=== PATIENT | female | born 1980 | race Two or more races ===

== ENCOUNTER 2024-04-25 15:46 | Outpatient (RCR) | payer OTHER, MEDICAID, SELFPAY | END 2024-05-24 23:59 | disposition home or self-care (01) | LOC: SCTC 15:46 | PROVIDERS: PCP Physician Assistant; Referring Provider Family Medicine; Visit Provider Nurse Practitioner Family | DX: C64.2 Malignant neoplasm of left kidney, except renal pelvis (principal); Z90.5 Acquired absence of kidney; K76.0 Fatty (change of) liver, not elsewhere classified; N13.30 Unspecified hydronephrosis; K59.00 Constipation, unspecified; Z90.721 Acquired absence of ovaries, unilateral; R91.1 Solitary pulmonary nodule; F10.11 Alcohol abuse, in remission | CPT/HCPCS: 99212; G0463 ==

== ENCOUNTER 2024-06-07 15:36 | Outpatient (RCR) | payer OTHER, MEDICAID, SELFPAY | END 2024-06-24 23:59 | disposition home or self-care (01) | LOC: SCTC 15:36 | PROVIDERS: PCP Physician Assistant; Referring Provider Physician Assistant; Visit Provider Nurse Practitioner Family | DX: C64.2 Malignant neoplasm of left kidney, except renal pelvis (principal); Z90.5 Acquired absence of kidney; D27.1 Benign neoplasm of left ovary; Z90.721 Acquired absence of ovaries, unilateral; R91.1 Solitary pulmonary nodule; K59.00 Constipation, unspecified; F10.11 Alcohol abuse, in remission; K76.0 Fatty (change of) liver, not elsewhere classified | CPT/HCPCS: 99212; G0463 ==

== ENCOUNTER → 2024-07-04 | Outpatient (CLI) | payer OTHER, MEDICAID, SELFPAY ==
[2024-07-04 18:02] LABS: Basophils # (Auto) 0.1 Thou/mm3 (0.0-0.2); Basophils % (Auto) 1 % (0-2.5); Eosinophils # (Auto) 0.2 Thou/mm3 (0.0-0.5); Eosinophils % (Auto) 2 % (0-10); Hematocrit 36.5 % (36.0-46.0); Hemoglobin 12.4 g/dL (12.0-16.0); Immature Granulocytes % (Auto) 0 % (0-0); Immature Granulocytes Auto 0.02 Thou/mm3 (0.00-0.00); Lymphocytes # (Auto) 2.7 Thou/mm3 (1.0-4.8); Lymphocytes % (Auto) 31 % (10-50); Mean Corpuscular Hemoglobin 29.6 pg (25.0-35.0); Mean Corpuscular Volume 87 fL (80-100); Monocytes # (Auto) 0.8 Thou/mm3 (0.0-0.8); Monocytes % (Auto) 9 % (0-12); Neutrophils % (Auto) 57 % (37-80); Nucleated Red Blood Cell % 0 /100 WBC (0); Platelet Count 231 Thou/mm3 (140-440); RDW Standard Deviation 40.5 fL (36.4-46.3); Red Blood Count 4.19 Miln/mm3 (4.00-5.20); White Blood Count 8.7 Thou/mm3 (3.6-11.0)
[2024-07-04 18:08] LABS: Partial Thromboplastin Time 26.6 Seconds (22.0-36.0); Prothrombin Time 10.6 Seconds (9.0-12.2)
[2024-07-04 18:21] LABS: Alanine Aminotransferase 28 U/L (10-49); Albumin, Serum 4.2 gm/dL (3.5-5.0); Albumin/Globulin Ratio 1.7 (1.2-2.2); Alkaline Phosphatase 94 U/L (46-116); Anion Gap 7 (7-16); Aspartate Amino Transferase 24 U/L (0-34); BUN/Creatinine Ratio 20 Ratio (12-20); Bilirubin,Total 0.6 mg/dL (0.3-1.2); Blood Urea Nitrogen 12 mg/dL (9-23); Calcium 9.1 mg/dL (8.3-10.6); Calcium (Corrected) 9.1 mg/dL (8.5-10.1); Carbon Dioxide 25.9 mMol/L (20.0-31.0); Chloride 105 mMol/L (98-107); Creatinine (Component) 0.6 mg/dL (0.6-1.3); Globulin 2.5 gm/dL (2.3-3.5); Glucose 89 mg/dL (74-106); Osmolality,Calculated 274 (275-295); Potassium 4.1 mMol/L (3.4-5.1); Sodium 138 mMol/L (136-145); Total Protein 6.7 gm/dL (5.7-8.2); eGFR > 60 See Note
== END | disposition home or self-care (01) ==
PROVIDERS: PCP Family Medicine; Referring Provider Internal Medicine Gastroenterology; Visit Provider Internal Medicine Gastroenterology
DX: R10.9 Unspecified abdominal pain (principal)
CPT/HCPCS: 36415; 80053; 85025; 85610; 85730

== ENCOUNTER 2024-12-01 14:41 | Outpatient (RCR) | payer OTHER, MEDICAID, SELFPAY ==
--- NOTE | 2024-12-12 01:50 | CTCFLWUP_ITS ---
Patient: PARI VARGAS : 1980 Page 8 of 9 FOLLOW UP NOTE DATE OF SERVICE: 12/01/2024 NAME: PARI VARGAS ACCOUNT: [id number] : 1980 AGE: 44 INTERVAL HISTORY: Patient in for follow-up. CT of abdomen and pelvis done at [facility] on 04/18/2024 showed no intra-abdominal or intrapelvic pathology but did show mild constipation. 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 Patient reports good appetite and energy levels. Patient denies any other concerns or complaints. Patient denies weight loss abdominal pain chest pain cough. 11/17/2024 CT scan showed no significant abnormality. 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 S/p left kidney biopsy (04/21/2022) S/p left partial nephrectomy at [facility] on 07/21/2022 INTERVAL HISTORY: Follow-up for kidney cancer and US results . Ultrasound of abdomen was ordered during last visit due to elevated LFTs. Ultrasound of abdomen showed fatty liver and mild bilateral hydronephrosis. Last time patient drank alcohol was over 5 years ago. Patient following up with nephrology, last follow-up was on 04/19/2024. Patient reports she went to the emergency room at [facility] on 04/17/2024 for abdominal pain, was told she had constipation, had imaging done, unsure what imaging was done, we do not have records. Patient denies abdominal pain at this time. Denies cough weight loss. HISTORY: Pari Vragas is a 44-year-old ENG speaking female has the following oncology history. 03/30/2021: Patient had transabdominal and pelvic ultrasound done to evaluate the cause for 3 days of lower pelvic pain. 04/16/2021: CT scan of the abdomen and pelvis with IV contrast to evaluate the cause for worsening lower abdominal pain? 04/16/2021: Ms. Vargas had exploratory laparotomy, left ovarian cystectomy and left salpingectomy. 08/26/2021: Ms. Vargas had abdominal ultrasound to evaluate the cause for abdominal pain of 2 hours duration. 10/03/2021: Ms. Vargas had laparoscopic cholecystectomy for symptomatic cholelithiasis. 04/20/2022: Ms. Vargas had CT scan of the abdomen and pelvis with IV contrast to evaluate the cause for abdominal pain with vaginal bleeding of 2 days duration. 04/21/2022: Ms. Vargas had CT-guided biopsy of the left renal tumor mass. 04/23/2022: MRI of the brain with IV contrast was obtained to evaluate the cause for headaches and dizziness of 4 days duration 04/24/2022: CT scan of the chest with IV contrast was done to rule out lung mets? 07/21/2022: Ms. Vargas had left partial nephrectomy at [facility]. 12/11/2022: Ms. Vargas had CT scan of the abdomen and pelvis with IV contrast? 02/16/2023: Ms. Vargas had CT scan of the abdomen and pelvis without contrast for bilateral flank pain in the abdomen. 04/10/2023: CT scan of the chest abdomen and pelvis with IV contrast 06/16/2023: MRI brain with and without contrast 10/16/2023: CT of chest with contrast 03/11/2024: AST 45, a LT 61, alk phos 118, T. bili 1.13 03/11/2024: 7 mm calcified pulmonary nodule is again seen in the right upper lobe, likely benign, no new focal pulmonary abnormality is noted. No evidence of residual or recurrent left renal tumor. 03/24/2024 follow-up visit: CT done on 03/11/2024 showed a 7 mm pulmonary nodule seen again in the right upper lobe, likely benign. Labs done on 03/11/2024 showed AST 45, ALT 61, a alk phos 118, total bilirubin 1.13. Patient has a history of alcohol abuse last time she drank was 5 years ago. 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 S/p left kidney biopsy (04/21/2022) S/p left partial nephrectomy at [facility] on 07/21/2022 Serous cystadenoma of the left ovary. Status post left oophorectomy (04/16/2021) DATE OF DIAGNOSIS: 04/21/2022 STAGE/TNM: Stage I renal cell carcinoma ([id number]), 26mm clear-cell, Fhurman type I of left kidney TREATMENT HISTORY: Care?Plan Start?Date Cycle Day Intent HISTORY OF PRESENT ILLNESS: OTHER MEDICAL HISTORY/CONDITIONS: Anemia Covid - 02/2021 Left renal cell cancer - 04/21/22 x 3 Left ovairan cyst removal - 03/2021 Cholecystectomy - 10/13 Cystoscopy - 10/13 - Dr. Ny FAMILY HISTORY: Cancer History:?Maternal grandmother- breast - dx age 30's Patient?denies?family?cancer?history. 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 Tobacco?Pack?per?Day:?1 Tobacco?Use?Years:?10 Tobacco?Use:?Quit?3?yrs?ago ETOH Use:?Quit 3 yrs ago - drank beer/hard liquor daily for 10 yrs Drug?Note:?Quit 3 yrs ago - Smoke meth and marijuana daily for 10 yrs, stopped about 2019 Social History Note:?Lives with and 2 children CONSTRUCTION PROJECT ADMINISTRATOR HISTORY: Menarche?-?Age:?16 Date?LMP:?04/09/2022 Hormone?Use:?Denies :?4 Live?Births:?3 Age?1st?:?19 Gynecological?Note:?1? MEDICATIONS: 1. atorvastatin - 10 mg 1 tab Daily 2. Wegovy - 0.5 mg/0.5 mL Weekly Medications Last Reconciled by [place] MD on 12/01/2024 ALLERGIES: No Known Allergies; No Known Drug Allergies REVIEW OF SYSTEMS: A complete 14-point review of systems was performed and is negative except as noted in interval history. PHYSICAL EXAMINATION: VITAL SIGNS: Temperature?98.9, B/P?121/81, Oxygen?Saturation?98% Weight?168?lbs PAIN: None ECOG Performance Status: 0 - Asymptomatic and fully active GENERAL APPEARANCE: Appears well, in no apparent distress, appropriately interactive. HEENT: Normocephalic, normal conjunctiva, normal hearing, lips without lesions, neck normal range of motion. CARDIOVASCULAR: Normal heart sounds. PULMONARY: Normal respiratory effort, no respiratory distress or use of accessory muscles, speaking in full sentences, no tachypnea. EXTREMITIES: No cyanosis. SKIN: Normal skin appearance. NEUROLOGIC: Alert and ORIENTED x4. PSHYCHIATRIC: Appropriate affect, mood normal, behavior normal, intact thought and speech. LABORATORY DATA: I have personally reviewed and interpreted each of the patient?s relevant lab tests, abnormal findings are below: Date 09/01/22 07/04/24 ??WHITE?BLOOD?COUNT?(Thou/mm3) 5.6 8.7 ??RED?BLOOD?COUNT?(Miln/mm3) 4.05 4.19 ??HEMOGLOBIN?(gm/dl) 11.2?L 12.4 ??HEMATOCRIT?(%) 34.2?L 36.5 ??PLATELET?COUNT?(Thou/mm3) 233 231 ??NEUTROPHILS?%,?AUTO?(%) 56 57 ??LYMPH?%,?AUTO?(%) 31 31 ??NEUTROPHILS,?AUTO?(Thou/mm3) 3.1 5.0 ??GLUCOSE,RANDOM?(mg/dL) ? 89 ??BLOOD?UREA?NITROGEN?(mg/dL) ? 12 ??CREATININE?(mg/dL) ? 0.60 ??SODIUM?(mmol/L) ? 138 ??POTASSIUM?(mmol/L) ? 4.1 ??CHLORIDE?(mmol/L) ? 105 ??CrCl?(CandG)?(ml/min) ? 124.02 ??AST/SGOT?(Unit/L) ? 24 ??ALT/SGPT?(Unit/L) ? 28 ??ALKALINE?PHOSPHATASE?(Unit/L) ? 94 ??BILIRUBIN,?TOTAL?(mg/dL) ? 0.6 ??PROTEIN?TOTAL?(gm/dl) ? 6.7 ??ALBUMIN,?SERUM?(gm/dl) ? 4.2 ??GLOBULIN?(gm/dl) ? 2.5 ??ALBUMIN/GLOBULIN?RATIO ? 1.7 ??CALCIUM,?SERUM?(mg/dL) ? 9.1 ??CALCIUM?SERUM?(CORRECTED)?(mg/dL) ? 9.1 ??RETICULOCYTE?ABSOLUTE?AUTO?(Biln/L) 53.1 ? ASSESSMENT/PLAN: #1. 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 S/p left kidney biopsy (04/21/2022) S/p left partial nephrectomy at [facility] on 07/21/2022 Serous cystadenoma of the left ovary. Status post left oophorectomy (04/16/2021) 7 mm pulmonary nodule seen again in the right upper lobe, likely benign, no evidence of residual recurrent left renal tumor, 03/11/2024 F/U with nephorology, next follow-up 06/17/2024, with [facility]. CT of abdomen and pelvis done at [facility] on 04/18/2024 showed no intra- abdominal or intrapelvic pathology, it did show mild constipation Patient denies abdominal pain at this moment. She reports chronic constipation. Referral to GI for possible colonoscopy. CT scan on 11/17/2024 is negative and do not show any concern for cancer #2. Elevated LFTs History of alcohol abuse, last time she drank was 5 years ago Fatty liver, ultrasound, 04/12/2024. Continue following up with PCP for management. LFTs are mildly elevated ..advised to avoid alcohol and Tylenol Continue following up with PCP for chronic conditions. CBC CMP ORDERS: Order # Description RETURN TO CLINIC: I reviewed the diagnosis, prognosis, and recommended treatment/procedure options with the patient (and/or their legal community relations representative), including the potential benefits, risks, side effects and alternative therapies. We also discussed the option of no treatment and the possibility of clinical trial participation, if applicable. All questions were addressed, and they demonstrated understanding. They provided informed consent to proceed with the proposed plan of care. BILLING AND COMPLIANCE: I reviewed external records from providers outside my specialty as summarized above. I spent a total of 50 minutes on this patient?s care on the day of their visit excluding time spent related to any billed procedures. This time includes time spent with the patient as well as time spent documenting in the medical record, reviewing patients records and tests, obtaining history, placing orders, communicating with other healthcare professionals, counseling the patient, family or caregiver, and/or care coordination for the diagnoses above. Electronically Signed by: {Object.Sanct_ID*[email or web address]@M}, {Object.Sanct_ID*PnP.Suffix@U} D: {Object.Sanct_Date} T: {Object.Sanct_Time} CC: Hanna?Tonya,? PCP: Julia Oro Referring: Julia Oro This document was completed utilizing speech recognition software. Grammatical errors, random word insertions, pronoun errors, and incomplete sentences are an occasional consequence of this system due to software limitations, ambient noise, and hardware issues. Any formal questions or concerns about the content, text or information contained within the body of this dictation should be directly addressed to the provider for clarification.
== END 2024-12-22 23:59 | disposition home or self-care (01) ==
LOC: SCTC 14:41
PROVIDERS: PCP Physician Assistant; Referring Provider Family Medicine; Visit Provider Internal Medicine Hematology & Oncology
DX: C64.2 Malignant neoplasm of left kidney, except renal pelvis (principal); Z90.5 Acquired absence of kidney; D27.1 Benign neoplasm of left ovary; Z90.721 Acquired absence of ovaries, unilateral; R91.1 Solitary pulmonary nodule; K59.00 Constipation, unspecified; K70.0 Alcoholic fatty liver
CPT/HCPCS: 99212; G0463

== ENCOUNTER → 2025-01-05 | Outpatient (CLI) | payer OTHER, MEDICAID, SELFPAY ==
--- NOTE | 2025-01-05 08:45 | XR_ITS ---
Examination: Diagnostic digital mammography, bilateral Computer aided detection 3-D breast Tomosynthesis, bilateral Date and time of exam: January 05, 2025 0758 hours INDICATIONS: Mammogram December 09, 2023 8 mm nodule nipple level left breast posterior depth Technique: Nonmagnified MLO, CC views of the breasts to been obtained, reconstructed from 3-D Tomosynthesis images. R2 computer aided detection program utilized for evaluation of suspicious masses and/or abnormal calcifications. 3-D Tomosynthesis images obtained. Findings: Breast are heterogeneously dense, which may obscure small masses Nodular asymmetry remains stable in size posterior depth CC view slightly outer left breast, nipple level left breast on the MLO view Impression: BI-RADS Category 0: Incomplete: Need additional imaging evaluation Recommend repeat left breast sonography to assess 9 mm nodule left breast.
== END | disposition home or self-care (01) ==
LOC: CDIM 07:41
PROVIDERS: Referring Provider Physician Assistant; Visit Provider Physician Assistant
DX: N63.20 Unspecified lump in the left breast, unspecified quadrant (principal)
CPT/HCPCS: 77062; 77066; G0279

== ENCOUNTER 2025-02-16 17:00 | Outpatient (RCR) | payer OTHER, MEDICAID, SELFPAY ==
--- NOTE | 2025-02-09 15:08 | PTNOTE_ITS ---
PT OP Initial Eval Patient Information Outpatient Physical Therapy Treatment Date: 02/09/25 Visit Reasons: Cervicaliga Medical Diagnosis: M54.2 Treatment Dx #1: neck pain Treatment Dx #2: LBP Date of Onset: 02/09/25 Smoking Status Smoking Status: Former smoker Initial Assessment Subjective: Pt is 45 yr old female who reports neck pain x9 months and she did therapy at [facility] in [place] with good results until an insurance change. Increased pain with turning head fast, doing HH chores and she feels mm tightness in the back of the neck and top of shoulders. She c/o LBP that hurts with bending and prolonged sitting. PMH: high cholesterol, Kidney cancer 2022, gallbladder removal 2022 Imaging: with provider Pt goal: to get rid of the pain Objective: C/S AROM: ? Ext 50% with pain at end-range ? Flexion full with slight onset of ssx ? L rotation: 75% R rotation: 75% ? C/S compression: no change ? Distraction: relief ? TTP: moderate of lower C/S paraspinals around C5-7 and UT?s ? B shoulder AROM: full FF ? Molina's reflex: negative ? flexion rotation test: negative for C1-2 limitations Spurlings: negative Assessment: Pt presents with pain and TTP of UT's and CTJ consistent with postural syndrome and possible disc irritation. Pt requires skilled therapy to meet goals and has fair rehab potential. Eval followed by HEP printout. Short Term and Intermediate Goals 1. Ind with HEP 2. Decreased TTP of UT's and CTJ from mod to min 3. Pt will turn head L to R x5 with <=4/10 pain Treatment Plan 1. Manual therapy ? 2. Therex ? 3. Modalities as indicated, mechanical traction, estim, moist heat, ice Frequency and Duration: 1-2x a week for 16 sessions plus the evaluation Certification Dates: 02/09/25 to 05/09/25 Procedure Charges OP PT Eval Mod Complex 30 minutes: Yes
--- NOTE | 2025-02-16 17:05 | PT.ODAYNRPT ---
PT Outpatient Daily Note OP Daily Note Outpatient Physical Therapy Treatment Date: 02/16/25 Visit Reasons: Cervicaliga Subjective: Pt denies cervical pain today. Explains she experienced a sharp pain earlier today that subsided with rest. Objective: See F/S fpr therex performed Assessment: Demo'd good mechanics w/ chin tuck and cervical stretches. Good tolerance and appropriate fatigue with therex, no c/o and states she enjoyed the exercises. Advised to continue with cervical stretches at home. Plan: Continue with POC Length of Time (minutes) of Treatment: 30 Minutes Procedure Charges Therapeutic Exercise 30 minutes: Yes
== END 2025-02-21 23:59 | disposition home or self-care (01) ==
LOC: CPTX 17:00
PROVIDERS: PCP Physician Assistant; Referring Provider Physician Assistant; Visit Provider Physician Assistant
DX: M54.2 Cervicalgia (principal); M54.50 Low back pain, unspecified
CPT/HCPCS: 97110; 97162

== ENCOUNTER 2025-02-22 16:27 | Outpatient (RCR) | payer OTHER, MEDICAID, SELFPAY ==
--- NOTE | 2025-02-22 17:24 | PT.ODAYNRPT ---
PT Outpatient Daily Note OP Daily Note Outpatient Physical Therapy Treatment Date: 02/22/25 Visit Reasons: Neck pain Subjective: Pt reports she is doing well with no neck pain Objective: See F/S for therex performed Assessment: Progressed to 1lb weights with therex, maintained good mechanics with no corrective cues required. No pain/discomfort with therex. Plan: Continue with POC Length of Time (minutes) of Treatment: 30 Minutes Procedure Charges Therapeutic Exercise 30 minutes: Yes
--- NOTE | 2025-04-11 12:02 | PT.ODS1RPT ---
PT OP Progress/Discharge Note Date of Service: 04/11/25 Progress Note/DC Note Progress Note/Discharge Note: DC Note Patient Information Visit Reasons: Neck pain Service Continue Service or Discharge: Discharge Discharge Date: 04/11/25 Status Assessment: Pt attended the initial evaluation and 2 Rx visits and then canceled 1 and no showed x2 and never returned or called to schedule a follow-up appointment within the past 30 days, which is not in compliance with attendance policy. Pt?s attendance is not consistent enough to make progress with goals. Thank you for your referrals. Plan: D/C
== END 2025-03-24 23:59 | disposition home or self-care (01) ==
LOC: CPTX 16:27
PROVIDERS: PCP Physician Assistant; Referring Provider Physician Assistant; Visit Provider Physician Assistant
DX: M54.2 Cervicalgia (principal); M54.50 Low back pain, unspecified
CPT/HCPCS: 97110

== ENCOUNTER → 2025-02-28 | Outpatient (CLI) | payer OTHER, MEDICAID, SELFPAY ==
--- NOTE | 2025-02-28 16:00 | XR_ITS ---
Examination: Breast ultrasound, unilateral, left complete Date and time of exam: February 28, 2025, 1600 hours INDICATIONS: Mammogram January 05, 2025 9 mm nodule left breast, nodular asymmetry posterior depth cc view slightly outer left breast nipple level left breast MLO view Technique: Real-time davis scale ultrasonographic imaging performed left breast including all 4 quadrants as well as nipple retroareolar and axillary region. Findings: 9:00 cyst 10 x 10 mm 10:00 oval mass lobular margins 4 x 3 mm 11:00 circumscribed nodule 4 x 4 millimeter Retroareolar cyst 5 x 6 mm smaller retroareolar cyst IMPRESSION: BI-RADS Category 2: Benign findings
== END | disposition home or self-care (01) ==
LOC: CDIM 15:55
PROVIDERS: Referring Provider Physician Assistant; Visit Provider Physician Assistant
DX: R92.8 Other abnormal and inconclusive findings on diagnostic imaging of breast (principal)
CPT/HCPCS: 76641